=== PATIENT | female | born 1980 | race Caucasian/White ===

== ENCOUNTER 2019-06-17 12:05 | Day surgery (SDC) | payer BC ==
[~2019-06-17 12:05] MED LIST: Dexamethasone 20 MG/5 ML VIAL ONE; Glycopyrrolate 0.2 MG/ML 5 ML SYRINGE ONE; Ketorolac Tromethamine 30 MG/ML VIAL ONE; Lidocaine 1% PF 5 ML VIAL ONE; Metoclopramide HCl 10 MG/2 ML VIAL ONE; Ondansetron PF 4 MG/2 ML Vial ONE; PROPOFOL 200 MG/20 ML VIAL ONE; Rocuronium Bromide 10 MG/ML (10ML VIAL) ONE
[2019-06-17] MEDS ORDERED: Ondansetron PF 4 MG/2 ML Vial ONE (12:34)
[2019-06-17] MEDS ORDERED: Morphine 4 MG/ML VIAL ONE ×2 (12:34→13:35)
[2019-06-17 12:37] LABS: #Basophils 0.1 thou/uL (0.0-0.2); #Eosinphils 0.1 thou/uL (0.0-0.7); #Lymphocytes 3.1 thou/uL (1.20-3.40); #Monocytes 0.4 thou/uL (0.11-0.59); #Neutrophils 3.5 thou/uL (1.40-6.50); %Basophils 1.1 % (0.0-1.0); %Eosinophils 0.9 % (0.0-10.0); %Monocytes 6.2 % (0.0-10.0); %Neutrophils 48.8 % (42.0-75.0); Hemoglobin 14.2 g/dL (12.0-16.0); Mean Corpuscular HGB CONC 33.9 g/dL (32.0-36.0); Mean Corpuscular Volume 88.4 fL (78.0-98.0); Mean Platelet Volume 7.9 fL (7.4-10.4); Platelet Count 321 thou/uL (130-400); RBC Distribution Width 11.7 % (11.5-14.5); Red Blood Cell (RBC) Count 4.73 mill/uL (4.20-5.40); White Blood Cell (WBC) Count 7.1 thou/uL (4.8-10.8)
[2019-06-17 12:56] LABS: ALT (SGPT) 15 U/L (8-55); AST (SGOT) 13 U/L (5-34); Albumin 4.1 g/dL (3.5-5.0); Alkaline Phosphatase 70 U/L (40-110); Anion Gap 13 mmol/L (10-20); BUN (Urea Nitrogen) 12 mg/dL (7.0-18.7); Bilirubin, Total 0.5 mg/dL (0.2-1.2); Calc. Creatinine Clearance 0 mL/min (70-130); Calcium 8.7 mg/dL (7.8-10.44); Carbon Dioxide 19 mmol/L (22-29); Chloride 110 mmol/L (98-107); Estimated GFR-MDRD 62; Globulin 2.7 g/dL (2.4-3.5); Glucose 105 mg/dL (70-105); Lipase 24 U/L (8-78); Potassium 3.7 mmol/L (3.5-5.1); Protein, Total 6.8 g/dL (6.0-8.3); Sodium 138 mmol/L (136-145)
--- NOTE | 2019-06-17 13:09 | ULT ---
EXAM: US Gallbladder RUQ CLINICAL HISTORY: Right upper quadrant abdominal pain. COMPARISON: None. FINDINGS: Pancreas: The head of pancreas has a normal echotexture. The remainder the pancreas is obscured by b owel gas Liver:Appropriate parenchymal echotexture. No hepatic masses or intrahepatic biliary dilatation. Righ t hepatic lobe measures 14.2 cm. Gallbladder: Sonographic evidence of cholelithiasis. There is no evidence of gallbladder wall thicken ing. No pericholecystic fluid. Frank's sign:Positive Portal Vein: Patent. Appropriate directional flow Bile ducts: Inadequately demonstrated Right kidney: No hydronephrosis. Right kidney measures 4.4 x 4.6 x 9.6 cm in length. IMPRESSION: 1. Cholelithiasis. Equivocal findings for cholecystitis. Consider HIDA scan.
[2019-06-17] MEDS ORDERED: Glycopyrrolate 0.4 MG/ 2 ML VIAL SLOW IVP SCH (13:45)
[2019-06-17] MEDS ORDERED: MEROPENEM 1 GM/50 ML 1 GM in Premix Bag 1 BAG IVPB SCH (13:45)
[2019-06-17] MEDS ORDERED: Glycopyrrolate 0.2 MG/ML 5 ML SYRINGE SLOW IVP SCH (14:15)
[2019-06-17] MEDS ORDERED: Midazolam HCl 2 mg/2 ml Vial ONE (18:23)
[2019-06-17] MEDS ORDERED: Bupivacaine 0.25% HCL 30 ML VIAL ONE (18:29)
[2019-06-17] MEDS ORDERED: Lidocaine 1% w/Epinephrine 1:100K 20 ML VIAL ONE (18:29)
[2019-06-17] MEDS ORDERED: Fentanyl 100 MCG/2 ML VIAL ONE ×2 (18:29→20:16)
[2019-06-17] MEDS ORDERED: Lidocaine 2% Jelly 5 ML TUBE ONE (18:35)
[2019-06-17] MEDS ORDERED: HYDROcodone/Acetaminophen 5/325 mg Tablet ONE (20:24)
--- NOTE | 2019-06-19 11:26 | OP ---
DATE OF PROCEDURE: 06/17/2019 PREOPERATIVE DIAGNOSES: Symptomatic cholelithiasis with severe biliary colic. PROCEDURE PERFORMED: Laparoscopic cholecystectomy. INDICATIONS FOR PROCEDURE: A 38-year-old female, who has been having episodic pain for 2 years. Over the last few days, it has been very severe, unable to eat without severe pain radiating to the back. Ultrasound showed cholelithiasis with a positive Frank's sign. FINDINGS: Small caliber cystic duct, minimal adhesions. DESCRIPTION OF PROCEDURE: After informed consent was obtained, the patient was taken to the operating room, given general endotracheal anesthesia. She was placed in the supine position. Abdomen was prepped and draped in usual fashion. Local anesthesia was infiltrated subcutaneously and deep. Subumbilical incision was performed. Subcu divided sharply. The fascia was grasped with 2 stay sutures of 0 Vicryl placed in either side of midline. Midline incised. Digital palpation revealed no local adhesions. A blunt 12 mm trocar inserted. Pneumoperitoneum was created to a pressure of 15 mmHg. A 0-degree laparoscope was inserted under direct vision. Three 5 mm ports were placed subcostally. Gallbladder grasped and advanced superiorly. Peritoneum lysed distally to reveal the cystic duct artery in critical view. The duct and artery were triply ligated with hemoclips and divided. The gallbladder was removed from its fossa utilizing electrocautery, removed from the abdomen through the umbilical port. Hemostasis was assured. Trocars and retractors were removed. The fascia was closed with interrupted 0 Vicryl suture. The skin was closed with interrupted 4-0 Rapide. Dermabond applied. The patient tolerated the procedure well and transferred to Recovery in good condition. Sponge and needle count verified correct x2. Job ID: [id number]
== END 2019-06-17 21:22 | disposition home or self-care (01) ==
LOC: ERS 12:05 → SDC/OP 18:00
PROVIDERS: ATTEND Surgery
PROC: 0FT44ZZ Resection of Gallbladder, Percutaneous Endoscopic Approach (ICD-10-PCS; principal; 2019-06-17)
DX: K80.64 Calculus of gallbladder and bile duct with chronic cholecystitis without obstruction (principal); I10 Essential (primary) hypertension; F41.9 Anxiety disorder, unspecified; Z79.84 Long term (current) use of oral hypoglycemic drugs; Z79.899 Other long term (current) drug therapy; Z88.0 Allergy status to penicillin; Z88.1 Allergy status to other antibiotic agents
CPT/HCPCS: 76705; 80053; 83690; 85025; J2185; J2250; J2270; J2405; J3010; S0020

== ENCOUNTER 2019-06-19 11:51 | Inpatient (IN) | payer BC ==
[2019-06-19] MEDS ORDERED: Fentanyl 100 MCG/2 ML VIAL ONE ×2 (12:31→14:30)
[2019-06-19] MEDS ORDERED: Ondansetron PF 4 MG/2 ML Vial ONE (12:31)
[2019-06-19 12:48] LABS: #Lymphocytes 1.9 thou/uL (1.20-3.40); #Monocytes 0.4 thou/uL (0.11-0.59); #Neutrophils 13.8 thou/uL (1.40-6.50); %Basophils 0.1 % (0.0-1.0); %Eosinophils 0.1 % (0.0-10.0); %Lymphocytes 11.7 % (21.0-51.0); %Monocytes 2.7 % (0.0-10.0); %Neutrophils 85.4 % (42.0-75.0); Hemoglobin 16.4 g/dL (12.0-16.0); Mean Corpuscular HGB CONC 33.4 g/dL (32.0-36.0); Mean Corpuscular Hemoglobin 29.7 pg (27.0-31.0); Mean Platelet Volume 8.1 fL (7.4-10.4); Platelet Count 394 thou/uL (130-400); RBC Distribution Width 11.8 % (11.5-14.5); Red Blood Cell (RBC) Count 5.53 mill/uL (4.20-5.40); White Blood Cell (WBC) Count 16.2 thou/uL (4.8-10.8)
[2019-06-19 13:14] LABS: ALT (SGPT) 22 U/L (8-55); AST (SGOT) 17 U/L (5-34); Albumin 4.6 g/dL (3.5-5.0); Alkaline Phosphatase 87 U/L (40-110); Anion Gap 16 mmol/L (10-20); BUN (Urea Nitrogen) 10 mg/dL (7.0-18.7); Bilirubin, Total 0.6 mg/dL (0.2-1.2); CK (CPK) 36 U/L (29-168); Calc. Creatinine Clearance 0 mL/min (70-130); Calcium 9.6 mg/dL (7.8-10.44); Carbon Dioxide 22 mmol/L (22-29); Chloride 103 mmol/L (98-107); Estimated GFR-MDRD 67; Globulin 3.2 g/dL (2.4-3.5); Glucose 123 mg/dL (70-105); Lipase 49 U/L (8-78); Potassium 3.7 mmol/L (3.5-5.1); Protein, Total 7.8 g/dL (6.0-8.3); Sodium 137 mmol/L (136-145)
--- NOTE | 2019-06-19 14:12 | CT ---
CT ABDOMEN AND PELVIS: HISTORY: Worsening abdominal pain. Surgery on Wednesday. Nausea and vomiting. COMPARISON: None. PROCEDURE: Multiple contiguous axial images were obtained and a CT of the abdomen and pelvis with IV contrast. C oronal reformats were performed. FINDINGS: Lower Chest: Areas of atelectasis and scarring in both lower lobes. There is evidence of solid attenu ation due to possible aspiration or pneumonia. Vessels: Normal caliber aorta. No periaortic fat stranding. Heart: Normal heart size. No significant pericardial fluid. Abdomen: Portal vein:Patent. Gallbladder: Surgically absent. No significant fluid in the gallbladder fossa. Liver: within normal limits. Pancreas: within normal limits. Spleen: within normal limits. Adrenals: within normal limits. Kidneys: Symmetric enhancement. No obstructive uropathy. Peritoneum: There is evidence of free air in the abdomen, presumed to be iatrogenic. No significant f ree fluid, mass or lymphadenopathy. Bowel: Limited evaluation by the lack of oral contrast. Multiple fluid-filled, distended loops of pro ximal and mid small bowel. The transition point appears to be in the epigastric region. Unremarkable ileocecal junction. Appendix is difficult to appreciate. No obvious inflammation of the cecal apex. Colon is decompressed. Mesentery and Retroperitoneum: No enlarged mesenteric or retroperitoneal lymph nodes. Abdominal Wall: Small pockets of nonspecific subcutaneous emphysema in the anterior abdominal wall. F indings are presumed to be iatrogenic. Pelvis: Reproductive Organs: Reproductive organs are unremarkable. Pelvis: There is a small amount of free fluid in the pelvis. Bladder: within normal limits. Bones: within normal limits. IMPRESSION: 1. Pneumoperitoneum, which is presumed to be iatrogenic. 2. Prominent fluid-filled loops of small bowel. Correlate for a developing ileus versus partial obstr uctive process. General surgical consultation is recommended. 3. Free fluid in the abdomen and pelvis, presumed to be iatrogenic. 4. Results of the study discussed with Dr. Hill 06/19/2019 at 2:11 PM. Code CR Transcribed Date/Time: 06/19/2019 2:17 PM
[2019-06-19 15:03] LABS: Bilirubin Negative (Negative); Blood, Urine Negative (Negative); Clarity Clear (Clear); Glucose, Urine (Dipstick) Normal (Negative); Leukocyte Negative Leu/uL (Negative); Nitrite Negative (Negative); Protein, Urine (Dipstick) Negative (Neg-Trace); Urobilinogen Normal mg/dL (Less than 2)
[2019-06-19] MEDS ORDERED: Iopamidol-370 76% 500 ML 1 ML ONE (15:05)
[2019-06-19] MEDS ORDERED: Morphine 4 MG/ML VIAL ONE (16:36)
[2019-06-19] MEDS ORDERED: Promethazine HCl 25 MG/ML VIAL ONE (16:37)
[2019-06-19] MEDS ORDERED: Benzocaine 20% Spray 60 ML CAN PO PRN (17:22)
[2019-06-19] MEDS ORDERED: Lidocaine Viscous Sol 2% 15 ml UD Cup SSW PRN (17:23)
[2019-06-19] MEDS ORDERED: Benzocaine 20% Spray 60 ML CAN ONE (17:24)
[2019-06-19] MEDS ORDERED: Lidocaine Viscous Sol 2% 15 ml UD Cup ONE (17:24)
[2019-06-19] MEDS ORDERED: Morphine 4 MG/ML VIAL SLOW IVP PRN (17:27)
[2019-06-19] MEDS ORDERED: Promethazine HCl 25 MG/ML VIAL IM/IV PRN (17:28)
[2019-06-19] MEDS ORDERED: Ondansetron PF 4 MG/2 ML Vial IVP PRN (17:28)
[2019-06-19] MEDS ORDERED: Sodium Chloride 0.9% 1,000 ML IV SCH (17:30)
[2019-06-19] MEDS ORDERED: hydrALAZINE 20 MG/ML VIAL SLOW IVP PRN (17:34)
[2019-06-19] MEDS: D5 1/2 NS w/20 mEq KCL 1,000 ML IV SCH (18:49)
[2019-06-19] MEDS ORDERED: Sodium Chloride 0.9% 10 ML ONE (18:57)
[2019-06-19 19:07] VITALS: BMI 30.1
[2019-06-19] MEDS: Lorazepam 2 MG/ML VIAL SLOW IVP PRN (21:43)
[2019-06-19] MEDS: Morphine 2 MG/ML SYRINGE SLOW IVP PRN (21:48)
--- NOTE | 2019-06-20 00:02 | HP ---
CHIEF COMPLAINT: Nausea, vomiting, central abdominal pain. HISTORY: A 38-year-old female, 2 day status post laparoscopic cholecystectomy that was uncomplicated, went home, has had progressive abdominal distention, nausea, vomiting. She has not passed any gas or bowel movement since surgery. PAST MEDICAL HISTORY: Hypertension, anxiety, depression, migraine headaches. PAST SURGICAL HISTORY: section, tonsil and adenoidectomy, rhinoplasty, recent laparoscopic cholecystectomy. MEDICATIONS: 1. Wellbutrin. 2. Amlodipine. 3. Metformin. 4. Topamax. 5. Trazodone. 6. NuvaRing. 7. Imitrex. ALLERGIES: SHE HAS ALLERGIES TO AMOXICILLIN, AUGMENTIN, OMNICEF. SOCIAL HISTORY: She is a nurse, works at this hospital. No tobacco. No alcohol. FAMILY HISTORY: Noncontributory. PHYSICAL EXAMINATION: GENERAL: She is afebrile, pulse is 120. She is uncomfortable. ABDOMEN: Distended and soft. No focal tenderness. Her incisions are healing well. There is no evidence of hernia or infection. LABORATORY DATA: Her white count is 16.2, H and H is 16 and 49, platelet count 394. Electrolytes are fine. LFTs normal. She had a CT scan showing no gallbladder fossa fluid. There is some mild free fluid in the abdomen. She has distended loops of small bowel with a transition zone in the lower abdomen. ASSESSMENT: Partial small-bowel obstruction versus severe ileus. PLAN: Recommend IV hydration, NG suction. Job ID: [id number]
[2019-06-20] MEDS: D5 1/2 NS w/20 mEq KCL 1,000 ML IV SCH ×4 (02:20→22:10)
[2019-06-20 05:54] LABS: #Basophils 0.1 thou/uL (0.0-0.2); #Eosinphils 0.1 thou/uL (0.0-0.7); #Lymphocytes 4.7 thou/uL (1.20-3.40); #Monocytes 1.2 thou/uL (0.11-0.59); #Neutrophils 9.4 thou/uL (1.40-6.50); %Basophils 0.3 % (0.0-1.0); %Eosinophils 0.7 % (0.0-10.0); %Lymphocytes 30.7 % (21.0-51.0); %Monocytes 7.5 % (0.0-10.0); %Neutrophils 60.8 % (42.0-75.0); Hemoglobin 13.2 g/dL (12.0-16.0); Mean Corpuscular HGB CONC 31.9 g/dL (32.0-36.0); Mean Corpuscular Hemoglobin 28.4 pg (27.0-31.0); Mean Corpuscular Volume 89.1 fL (78.0-98.0); Platelet Count 335 thou/uL (130-400); RBC Distribution Width 11.6 % (11.5-14.5); Red Blood Cell (RBC) Count 4.66 mill/uL (4.20-5.40); White Blood Cell (WBC) Count 15.4 thou/uL (4.8-10.8)
[2019-06-20 06:12] LABS: Anion Gap 10 mmol/L (10-20); BUN (Urea Nitrogen) 7 mg/dL (7.0-18.7); Calc. Creatinine Clearance 118 mL/min (70-130); Carbon Dioxide 21 mmol/L (22-29); Chloride 111 mmol/L (98-107); Estimated GFR-MDRD 86; Glucose 112 mg/dL (70-105); Potassium 3.5 mmol/L (3.5-5.1); Sodium 138 mmol/L (136-145)
[2019-06-20] MEDS: Lorazepam 2 MG/ML VIAL SLOW IVP PRN (06:30)
[2019-06-20] MEDS: Morphine 2 MG/ML SYRINGE SLOW IVP PRN (06:33)
[2019-06-20] MEDS ORDERED: Sodium Chloride 0.9% 500 ML IV SCH (08:45)
[2019-06-20] MEDS: Pantoprazole 40 MG VIAL IVP SCH (08:45)
[2019-06-20] MEDS ORDERED: FLU VACC QS2019-20(6MOS UP)/PF 60 MCG/0.5 ML SYRINGE IM ONE (09:00)
--- NOTE | 2019-06-20 11:54 | PRG ---
DATE OF SERVICE: 06/20/2019 SUBJECTIVE: The patient says she feels better with the NG, complains of throat and nasal pain, still has not passed any gas out her bottom. OBJECTIVE: VITAL SIGNS: On examination, her temperature is 98.9, pulse 102, blood pressure 154/93. GENERAL: She is awake and alert. She has had 400 out her NG tube. ABDOMEN: Soft and nondistended. LABORATORY DATA: White count 15, hemoglobin and hematocrit are 13 and 41, and platelet count 335. Electrolytes, elevated glucose at 112. ASSESSMENT: Small-bowel obstruction. PLAN: Small-bowel follow-through. Job ID: [id number]
[2019-06-20] MEDS ORDERED: MD-Gastroview 120 ML BOT ONE (13:47)
--- NOTE | 2019-06-20 17:32 | RAD ---
Small bowel follow-through HISTORY: Abdominal pain. Recent surgery. FINDINGS: Evidence of free intraperitoneal gas in the right abdomen on edge inker heels imaging. Water-soluble c ontrast administered per the nasogastric tube. Mildly dilated contrast-filled loops of small bowel throughout the abdomen. Contrast is seen within the right colon at 3 hours. IMPRESSION: No evidence of bowel obstruction. Presumed ileus. Pneumoperitoneum again demonstrated.
[2019-06-21] MEDS: D5 1/2 NS w/20 mEq KCL 1,000 ML IV SCH ×3 (06:14→22:09)
[2019-06-21] MEDS ORDERED: ABREVA TOP PRN (07:24)
[2019-06-21] MEDS: Pantoprazole 40 MG VIAL IVP SCH (09:32)
--- NOTE | 2019-06-21 09:33 | PRG ---
DATE OF SERVICE: 06/21/2019 SUBJECTIVE: The patient is feeling much better today. She has had multiple bowel movements. Pain has gone. No nausea or vomiting. NG tube output has dropped off significantly. OBJECTIVE: VITAL SIGNS: Her temperature is 99, pulse 110, and blood pressure 139/85. GENERAL: She is awake and alert, does not appear to be in any distress. We had clamped her NG tube. There was minimal output for 2 hours, so we went on to remove the NG tube. ABDOMEN: Again, her abdomen is soft, nondistended, and nontender. ASSESSMENT: Small bowel obstruction, resolved. PLAN: Start clear liquids. Job ID: [id number]
[2019-06-21] MEDS: Ketorolac Tromethamine 30 MG/ML VIAL IVP PRN ×2 (11:40→17:35)
[2019-06-21] MEDS ORDERED: SUMAtriptan Succinate 50 MG TAB PO PRN (17:30)
[2019-06-21] MEDS ORDERED: SUMAtriptan Succinate 25 MG TAB PO PRN (17:45)
[2019-06-21] MEDS ORDERED: traZODone HCl 50 MG TAB PO SCH (21:00)
[2019-06-21] MEDS: Topiramate 100 MG TAB PO SCH (21:14)
[2019-06-22] MEDS: Ketorolac Tromethamine 30 MG/ML VIAL IVP PRN (00:04)
[2019-06-22] MEDS: D5 1/2 NS w/20 mEq KCL 1,000 ML IV SCH ×2 (06:14→09:04)
[2019-06-22] MEDS: Pantoprazole 40 MG VIAL IVP SCH (08:58)
[2019-06-22] MEDS: Topiramate 100 MG TAB PO SCH (08:59)
[2019-06-22] MEDS ORDERED: Amlodipine 5 MG TAB PO SCH (09:00)
[2019-06-22] MEDS ORDERED: buPROPion HCl 100 MG TAB PO SCH (09:00)
[2019-06-22 12:10] VITALS: BP 118/77; TEMP 98.1
--- NOTE | 2019-06-23 08:38 | DIS ---
DATE OF ADMISSION: 06/19/2019 DATE OF DISCHARGE: 06/22/2019 DISCHARGE DIAGNOSIS: Small bowel obstruction. PROCEDURES DURING ADMISSION: NG suction, IV hydration. HOSPITAL COURSE: The patient was admitted, NG tube was placed. A small bowel follow-through was performed. It showed slow transit, but went through. Then, she had multiple bowel movements and NG tube was removed. Her diet was advanced. She is now tolerating a regular diet. Pain is controlled with no medications. She is discharged home on her usual medications and will follow up with me in 2 weeks. Job ID: [id number]
--- NOTE | 2019-06-23 21:01 | PQF ---
[employer] Reports Winform Viewer JOSE CARLOS PLASCENCIA JOHN A JR MD [id number] [address] [place] [address] [id number] CLINICAL DOCUMENTATION CLARIFICATION FORM: POST DISCHARGE Addendum to original discharge summary date: ____ Late entry note date: __ DATE: 06/23/18 ATTN: Keith Campbell Please exercise your independent, professional judgment in responding to the clarification form. Clinical indicators are provided on the bottom of this form for your review Can you please further clarify if Pneumonia is ruled in or ruled out? Pneumonia [ ] Ruled in diagnosis [ ] Continue to treat [ ] Resolved [ ] Ruled out diagnosis [ ] Cannot rule out diagnosis [ ] Other diagnosis [ ] Unable to determine In addition, please specify: Present on Admission (POA): [ ] Yes [ ] No [ ] Unable to determine For continuity of documentation, please document condition throughout progress notes and discharge summary. Thank You. CLINICAL INDICATORS - SIGNS / SYMPTOMS / LABS ED Provider pg.3- Pneumonia ED Provider pg.2- Respiratory: breath sounds clear, chest exam include findings of chest movement symmetrical. No respiratory distress ED Provider pg.3 -abdomen concern for Ileus, atelectasis vs infiltrates CY abdomen/Pelvis pg.1- there is evidence of solid attenuation due to possible aspiration or pneumonia Laboratory- WBC 16.2h, 15.4H RISK FACTORS s/p laparoscopic cholecystectomy- H and P pg.1 Hypertension- H and P pg.1 Partial small bowel obstruction- H and P pg.1 TREATMENTS Abdomen/Pelvis CT 06/19 IV fluids- MAR IV antibiotics- MAR (This form is maintained as a part of the permanent medical record) 2014 [employer]. All Rights Reserved [email or web address] [not provided] MTDD
--- NOTE | 2019-06-24 15:32 | EKG ---
Test Reason : Blood Pressure : / mmHG Vent. Rate : 116 BPM Atrial Rate : 116 BPM P-R Int : 154 ms QRS Dur : 070 ms QT Int : 306 ms P-R-T Axes : 035 -04 045 degrees QTc Int : 425 ms Sinus tachycardia Possible Left atrial enlargement Cannot rule out Anterior infarct , age undetermined Abnormal ECG Confirmed by ASH DELONG, SYEDA ([id number]), editor department REYNALDO NO ([id number]) on 06/24/2019 3:32:02 PM Referred By: Confirmed By:SYEDA ALEMAN MD
== END 2019-06-22 16:36 | disposition home or self-care (01) | DRG 390 ==
LOC: ERS 11:51 → 3SE 18:12
PROVIDERS: ADMIT Surgery; ATTEND Surgery
DX: K56.600 Partial intestinal obstruction, unspecified as to cause (principal); I10 Essential (primary) hypertension; F41.9 Anxiety disorder, unspecified; F32.9 Major depressive disorder, single episode, unspecified; G43.909 Migraine, unspecified, not intractable, without status migrainosus; Z90.49 Acquired absence of other specified parts of digestive tract; Z79.84 Long term (current) use of oral hypoglycemic drugs; Z79.899 Other long term (current) drug therapy; Z88.1 Allergy status to other antibiotic agents
CPT/HCPCS: 36415; 74177; 74250; 76705; 80048; 80053; 81003; 82550; 83690; 85025; 87040; 87804; 88304; 93005; 96361; 96365; 96375; C9113; J1100; J1885; J1956; J2001; J2060; J2185; J2250; J2270; J2405; J2550; J2704; J2765; J3010; Q9963; Q9967; S0020

== ENCOUNTER 2020-05-01 08:19 | Outpatient (CLI) | payer BC ==
--- NOTE | 2020-05-01 11:59 | MRI ---
Magnetic resonance angiogram MRA head noncontrast: DATE: 05/01/2020 HISTORY: 39-year-old female with ICD-10: "G 43.109 migraine without aura, without status migrainosus, not intr actable" TECHNIQUE: 3-D [id number] MRA in multiple axial slabs. Source images and 3-D MIP reconstructions evaluated. FINDINGS: The anterior and posterior circulation major central arteries of [place] demonstrate no high -grade short segment focal acquired stenosis, and no evidence of occlusion. There is no evidence of aneurysm larger than 3 mm. Bilateral PICA origins are visualized. Patent bilateral posterior communic ating arteries. Patent anterior to indicating artery. IMPRESSION: Negative
--- NOTE | 2020-05-01 12:31 | MRI ---
MRA magnetic resonance angiogram neck with and without contrast: 05/01/2020 HISTORY: 39-year-old female with ICD-10: "F45.8, other somatoform disorders" Patient complains of intermittent left neck pain for 8 months. TECHNIQUE: 2-D [id number] and 3-D [id number] in multiple axial slabs through neck. Coronal acquisition mask. IV injection of 20 mL MultiHance gadolinium-based contrast agent. Coronal acquisition slab covering from aortic arch to skull base. Source images and 3-D MIP reconstructions evaluated. FINDINGS: Bovine common origin of left common carotid artery with the innominate artery from the aortic arch. T he bilateral subclavian, brachiocephalic, bilateral common carotid, bilateral internal carotid, and bilateral vertebral, arteries, are normal in caliber. IMPRESSION: Normal
== END 2020-05-01 08:20 | disposition home or self-care (01) ==
LOC: BICMRI 08:19
PROVIDERS: ATTEND Family Medicine
DX: G43.109 Migraine with aura, not intractable, without status migrainosus (principal); F45.8 Other somatoform disorders; M54.2 Cervicalgia
CPT/HCPCS: 70544; 70549; 82565

== ENCOUNTER 2023-03-30 16:32 | Emergency (ER) | payer BC ==
[~2023-03-30 16:32] MED LIST changes: -Dexamethasone 20 MG/5 ML VIAL ONE; -Glycopyrrolate 0.2 MG/ML 5 ML SYRINGE ONE; +Iopamidol-370 76% 500 ML MDV (1 ML CHARGE) ONE; -Ketorolac Tromethamine 30 MG/ML VIAL ONE; -Lidocaine 1% PF 5 ML VIAL ONE; -Metoclopramide HCl 10 MG/2 ML VIAL ONE; -Ondansetron PF 4 MG/2 ML Vial ONE; -PROPOFOL 200 MG/20 ML VIAL ONE; -Rocuronium Bromide 10 MG/ML (10ML VIAL) ONE
[2023-03-30] MEDS ORDERED: Morphine 4 MG/ML VIAL ONE (17:03)
[2023-03-30] MEDS ORDERED: Morphine 2 MG/ML VIAL ONE ×2 (17:04→17:47)
[2023-03-30] MEDS ORDERED: Ondansetron PF 4 MG/2 ML Vial ONE (17:04)
[2023-03-30] MEDS ORDERED: Ketorolac Tromethamine 30 MG/ML VIAL ONE (17:46)
[2023-03-30 18:13] LABS: #Basophils 0.1 thou/uL (0.0-0.2); #Eosinphils 0.1 thou/uL (0.0-0.7); #Monocytes 0.7 thou/uL (0.11-0.59); #Neutrophils 7.1 thou/uL (1.40-6.50); %Basophils 0.5 % (0.0-1.0); %Eosinophils 0.5 % (0.0-10.0); %Lymphocytes 28.8 % (21.0-51.0); %Monocytes 6.3 % (0.0-10.0); %Neutrophils 63.5 % (42.0-75.0); Hematocrit 40.5 % (36.0-47.0); Hemoglobin 13.8 g/dL (12.0-16.0); Mean Corpuscular HGB CONC 34.1 g/dL (32.0-36.0); Mean Corpuscular Hemoglobin 30.1 pg (27.0-31.0); Mean Corpuscular Volume 88.4 fl (78.0-98.0); Mean Platelet Volume 11.8 fL (7.4-10.4); Platelet Count 275 10x3/uL (130-400); RBC Distribution Width 12.6 % (11.5-14.5); Red Blood Cell (RBC) Count 4.58 mill/uL (4.20-5.40); White Blood Cell (WBC) Count 11.2 10x3/uL (4.8-10.8)
[2023-03-30 18:27] LABS: BHCG - Serum Negative (NEGATIVE)
[2023-03-30 18:28] LABS: Pregs Control Background? CLEAR/WHITE (CLR/WHITE); Pregs Control Bar Appear? YES (CONTROL BAR)
[2023-03-30 18:45] LABS: ALT (SGPT) 24 U/L (8-55); AST (SGOT) 21 U/L (5-34); Albumin 4.4 g/dL (3.5-5.0); Alkaline Phosphatase 67 U/L (40-110); Anion Gap 20 mmol/L (10-20); BUN (Urea Nitrogen) 13 mg/dL (7.0-18.7); Bilirubin, Total 0.3 mg/dL (0.2-1.2); Calc. Creatinine Clearance 0 mL/min (70-130); Carbon Dioxide 15 mmol/L (22-29); Chloride 107 mmol/L (98-107); Estimated GFR 72; Globulin 2.7 g/dL (2.4-3.5); Glucose 124 mg/dL (70-105); Lipase 49 U/L (8-78); Magnesium 1.9 mg/dL (1.6-2.6); Potassium 3.7 mmol/L (3.5-5.1); Protein, Total 7.1 g/dL (6.0-8.3); Sodium 138 mmol/L (136-145)
[2023-03-30 19:59] LABS: Bacteria/HPF None Seen HPF (None Seen); Bilirubin Negative (Negative); Blood, Urine 2+ (Negative); CAUTI Indications for Culture Pelvic or flank pain; Clarity Clear (Clear); Glucose, Urine (Dipstick) Normal (Negative); Ketone, Urine 20 mg/dL (Negative); Leukocyte Negative Leu/uL (Negative); Nitrite Negative (Negative); Protein, Urine (Dipstick) Negative (Neg-Trace); RBC/HPF 21-50 HPF (0-3); Squamous Epithelial 0-3 HPF (0-3); Urobilinogen Normal mg/dL (Less than 2); WBC/HPF 0-3 HPF (0-3); pH, Urine 7.5 (5.0-9.0)
[2023-03-30 20:02] LABS: Specific Gravity, Urine 1.053 (1.002-1.036)
[2023-03-30 20:03] LABS: Urine Culture Reflex No No
== END 2023-03-30 21:00 | disposition home or self-care (01) ==
LOC: ERS 16:32
DX: N13.2 Hydronephrosis with renal and ureteral calculous obstruction (principal); I10 Essential (primary) hypertension
CPT/HCPCS: 36415; 74177; 80053; 81001; 83690; 83735; 84703; 85025; 93005; 96361; 96374; 96375; J1885; J2270; J2272; J2405; Q9967

== ENCOUNTER 2023-12-17 08:30 | Outpatient (CLI) | payer BC ==
[2023-12-17] MEDS ORDERED: Iopamidol 370 76% 100 ML VIAL ONE (11:39)
== END 2023-12-17 08:31 | disposition home or self-care (01) ==
LOC: SJX 08:30
PROVIDERS: ATTEND Internal Medicine Gastroenterology
DX: R10.33 Periumbilical pain (principal); K76.0 Fatty (change of) liver, not elsewhere classified; K59.00 Constipation, unspecified; N28.1 Cyst of kidney, acquired; N20.0 Calculus of kidney
CPT/HCPCS: 74177; Q9967

== ENCOUNTER 2024-04-11 14:38 | Outpatient (CLI) | payer BC | END 2024-04-11 14:39 | disposition home or self-care (01) | LOC: BICULT 14:38 | PROVIDERS: ATTEND Urology | DX: N20.0 Calculus of kidney (principal) | CPT/HCPCS: 76770 ==